=== PATIENT | female | born 1945 | race Caucasian/White ===

== ENCOUNTER 2025-04-14 11:18 | Outpatient (REF) | payer OTHER, SELFPAY ==
--- NOTE | ~2025-04-14 | CT_ITS ---
EXAMINATION: CT HEAD WITHOUT IV CONTRAST HISTORY: INJ OF HEAD. TECHNIQUE: Unenhanced helical CT of the head was performed per standard departmental protocol. Coronal and sagittal reformats of the head were also evaluated. One or more of the following techniques was used for dose reduction: Automated exposure control, adjustment of the mA and/or kV according to patient size, use of iterative reconstruction technique. DLP: 722 mGy-cm COMPARISON: There are no prior studies available for comparison. FINDINGS: BRAIN: There is no evidence of an extra-axial collection. There is no evidence of intra or extra-axial hemorrhage. The ventricles and extra-axial CSF spaces are prominent suggestive of generalized atrophy. There is nonspecific periventricular white matter disease. 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 No mass, mass effect or acute infarct. SINUSES: The visualized paranasal sinuses are clear. The mastoid air cells and middle ear cavities are well pneumatized. ORBITS: Postsurgical changes. Orbits otherwise unremarkable. BONES/SOFT TISSUES: The extracranial soft tissues are unremarkable. The calvarium is intact. No suspicious lytic or sclerotic lesions. Degenerative changes at the right temporomandibular joint and proximal cervical spine. CT/CT head/brain wo IV con IMPRESSION: No acute intracranial findings. Mild generalized atrophy and nonspecific periventricular white matter disease. Electronically signed by: Amina Webb MD 04/14/2025 11:56 AM EDT
--- OUTSIDE RECORDS SUMMARY | 2025-04-14 14:02 | XMS_ITS ---
Author Organization [facility] Care Team Providers Care Manager Commission Name Role Phone Prince Garcia Unavailable Unavailable Rocio Camacho Unavailable Unavailable Ivone Jay Unavailable Unavailable Seifel, Marietta R Unavailable Unavailable Michelle Bhagat Unavailable Unavailable Suzan Bird Unavailable Unavailable Allergies and adverse reactions Code CodeSystem Substance Reaction Severity StartDate Concern Status 712808190 SNOMED CT Sulfa Antibiotics Unknown 03/06/[address] Beta Adrenergic Blockers Unknown 03/06/2018 active Care Team Name Role Address Phone Organization Dates Prince Garcia [address], [address], [place]Office[place] : [facility] [place] 03/06/2018 - 03/22/2018 Rocio Camacho [address], [place], [address], [place] (Office[facility] : [facility] [place] 03/06/2018 - 03/22/2018 Ivone Jay [address], [place], [address], [place]Office[place] : [facility] [place] 03/06/2018 - 03/22/2018 Marietta Lew [address] [facility] [address], [place], [address], [place]Office[place] : [facility] [place] 03/06/2018 - 03/22/2018 Michelle Hyde Olayinka [address], [place], [address], [place] (Office[place] : [facility] [place] 03/06/2018 - 03/22/2018 Suzan M Marge [address] [facility] [address], [place], [address], [place] (Office): : [facility] [place] 03/06/2018 - 03/22/2018 Immunizations Immunization Status Vaccine Details Vaccine Code CodeSystem Date Notes Pneumovax Dose 1 completed pneumococcal polysaccharide vaccine, 23 valent lotNumber: [id number] expiry: 09/08/2018 Mfg: [employer] Given Right Deltoid intramuscularly 33 CVX created date: 03/18/2018 consent date: 03/17/2018 administere d date: 03/18/2018 Influenza (high dose) completed Influenza, high-dose, split virus, trivalent, injectable, preservative free 135 CVX created date: 03/11/2018 administere d date: 04/14/2017 Mental Status Section Date Assessment Total Score Description 03/22/2018 BIMS 15 cognitively int act CAM 0 No delirium ind icated PHQ-9 00 03/20/2018 BIMS 15 cognitively int act CAM 0 No delirium ind icated PHQ-9 00 Insurance Providers Problems Problem # Description Date of onset Resolved Date Code CodeSystem Concern Status 1 ARTHROPATHIES IN OTHER SPECIFIED DISEASES CLASSIFIED ELSEWHERE, UNSPECIFIED SITE 03/06/[id number] active 2 COGNITIVE COMMUNICATION DEFICIT 03/06/[address] active 3 DIFFICULTY IN WALKING, NOT ELSEWHERE CLASSIFIED 03/06/[address] active 4 ENCOUNTER FOR OTHER ORTHOPEDIC AFTERCARE 03/06/[address] active 5 ESSENTIAL (PRIMARY) HYPERTENSION 03/06/[address] active 6 FIBROMYALGIA 03/06/[address] acti ve 7 HYPOTHYROIDISM, UNSPECIFIED 03/06/[address] active 8 MULTIPLE FRACTURES OF RIBS, BILATERAL, SUBSEQUENT ENCOUNTER FOR FRACTURE WITH ROUTINE HEALING 03/06/[address] active 9 NONDISPLACED BIMALLEOLAR FRACTURE OF RIGHT LOWER LEG, SUBSEQUENT ENCOUNTER FOR CLOSED FRACTURE WITH ROUTINE HEALING 03/06/[address] active 10 OTHER AMNESIA 03/06/[address] acti ve 11 OTHER SPECIFIED DEPRESSIVE EPISODES 03/06/[address] active 12 UNSTEADINESS ON FEET 03/06/[address] active Reason for Referral No Reasons for Referral Entered Social History Social History Observation Description Start Date End Date Code Code System Current Smoking Status Tobacco smoking consumption unknown 720275407 SNOMED CT Sex Assigned At Female 1945 [address]-3 [facility] Gender Identity Sexual Orientation Vital Signs Code Code System Vitals Name Values and Units Timing Information 53844-0 [facility] Pain Level Value=3.0 03/22/2018 80042-7 LOINC Weight Cpyyi=986.2 Units=Lbs 9279-1 LOINC Respiratory Rate Value=16.0 Units=/m in 03/20/2018 8462-4 LOINC Blood Pressure-Diastolic Value=86 Un its=mmHg 03/20/2018 8480-6 LOINC Blood Pressure-Systolic Cfhzw=119 Un its=mmHg 03/20/2018 8310-5 LOINC Body Temperature Value=98.1 Units= F 03/20/2018 8867-4 LOINC Heart rate Value=77.0 Units=/min 85945-3 LOINC O2 % BldC Oximetry Value=95.0 Units= % 03/20/2018 8302-2 LOINC Height Value=66.0 Units=Inches 03/12/2018
== END 2025-04-14 11:19 | disposition home or self-care (01) ==
LOC: HO.CT 11:18
PROVIDERS: PCP Family Medicine; Visit Provider Family Medicine
DX: S09.90XD Unspecified injury of head, subsequent encounter (principal)
CPT/HCPCS: 70450

== ENCOUNTER → 2025-04-14 11:20 | Outpatient (BNV) | payer OTHER, SELFPAY | PROVIDERS: PCP Family Medicine; Visit Provider Radiology Diagnostic Radiology | DX: R90.82 White matter disease, unspecified (principal); G31.89 Other specified degenerative diseases of nervous system | CPT/HCPCS: 70450 ==